=== PATIENT | male | born 1975 | race Caucasian/White ===

== ENCOUNTER 2017-01-22 19:17 | Emergency (ER) | payer BC ==
[~2017-01-22] VITALS: Ht 167.6 cm; Wt 90.7 kg
[~2017-01-22 19:17] MED LIST: PERCOCET 5/3251 EACH PO; VIBRAMYCIN 100100 MG PO
--- OUTSIDE RECORDS SUMMARY | 2017-01-22 19:23 | External Medical Summary Rpt | CCD ---
Author Author [employer] Organization [employer] Address Unknown Phone Unavailable Purpose Continuity of Care Document - through 2016
--- OUTSIDE RECORDS SUMMARY | 2017-01-22 19:23 | External Medical Summary Rpt | CCD ---
Author Author , SUKUMAR PATINO Address Unknown Phone [email or web address] Purpose Continuity of Care Document - through 2016
--- OUTSIDE RECORDS SUMMARY | 2017-01-22 19:23 | External Medical Summary Rpt | CCD ---
Author Author , SUKUMAR PATINO Address Unknown Phone [email or web address] Purpose Continuity of Care Document - through 2016
--- OUTSIDE RECORDS SUMMARY | 2017-01-22 19:24 | External Medical Summary Rpt ---
Author Author SUKUMAR Gunderson, [employer] Organization [employer] Address Unknown Phone Unavailable
--- OUTSIDE RECORDS SUMMARY | 2017-01-22 19:24 | External Medical Summary Rpt | CCD ---
Demographics Preferred Language Estonian Marital Status Unknown Presybeterian Affiliation Unknown Race Unknown Ethnic Group Unknown Author Author , SUKUMAR Organization [employer] Address Unknown Phone [email or web address] Immunization Name Date Rout CVX Reac Dose Comm Prov Is Faci e tion ent ider Refu lity Give sed n Td 03-0 9 999 Hist H149 No H149 (miranda 7-19 [facility] lt), 97 al Info adso rmat rbed ion - Sour ce Unsp ecif ied
--- OUTSIDE RECORDS SUMMARY | 2017-01-22 19:24 | External Medical Summary Rpt | CCD ---
Demographics Preferred Language Latvian Marital Status Unknown Pentecostalism Affiliation Unknown Race Unknown Ethnic Group Unknown Author Author , SUKUMAR Organization [employer] Address Unknown Phone [email or web address] Immunization Name Date Rout CVX Reac Dose Comm Prov Is Faci e tion ent ider Refu lity Give sed n Td 03-0 9 999 Hist H149 No H149 (miranda 7-19 [facility] lt), 97 al Info adso rmat rbed ion - Sour ce Unsp ecif ied
[2017-01-22 20:37] LABS: URINE BILIRUBIN - DIPSTICK 1+ (NEG); URINE BLOOD NEGATIVE (NEG)
[2017-01-22] MEDS ORDERED: TAMIFLU 75MG CA75 MG PO (20:44)
[2017-01-22] MEDS ORDERED: ZOFRAN ODT4 MG PO (20:44)
--- NOTE | 2017-01-22 20:44 | Urgent Treatment Center Report ---
History of Present Issue Date/Time Seen by Provider 01/22/17 2018 Visit Reason Pt arrived:Walked Presenting Problem:CHILLS, BODY ACHES, NOT FEELING WELL, NAUSEA, FEVER Location if Accident: Onset of symptoms date/time:/ or onset unknown for:MEDICAL HX UNKNOWN Have you (or family members/close friends) recently traveled outside the [place]? N If Yes, where/when: Have you had exposure to infectious disease within the past month? TB? Other? Specify: Here w/ c/o bodyaches, chills, nausea. Started w/ mild body aches night before last. Didn't pay much attention. Bodyaches again yesterday "but I just pushed through the day. I had to." Went on to work this morning and left around 3pm. Since then, symptoms worsening. Bodyaches and chills worse just in the last few hours. Not sure about fevers. Runny nose starting. "a little cough but not bad in the last hour". Motrin around 3-4pm. and children w/ stomach virus. last week and children over the last weekend. Pt feeling nauseated just since arriving to clinic and per triage nurse, vomited when taken back to room. Has not had flu vaccine. Source patient Exam Limitations no limitations ALLERGIES Coded Allergies: No Known Allergies (01/22/17) History Medical History General Angina: No PR: No Hypertension? No Hyperlipidemia? No COPD? No Asthma? No CVA? No Seizures? No Diabetes? No GB Disease: No MRSA? No TB? No Cancer? No Immunization HX DT/Tetanus 07/22/2008 Surgical Hx Previous Surgery?Y WISDOM TEETH Social History Smoking Hx Smoker: Current Every Day Smoker Tobacco: Yes Type Cigarettes Packs/day < 1 Pack Alcohol Alcohol: Yes Review of Systems All Other Systems Reviewed and Negative Constitutional see HPI Eyes denies drainage, denies pain ENT denies: ear pain, nose congestion, throat pain. Respiratory see HPI, denies shortness of breath, denies wheezing Cardiovascular see HPI, denies chest pain Gastrointestinal see HPI, denies abdominal pain, diarrhea (last night) Genitourinary denies: discharge, dysuria, frequency, hesitancy, hematuria, other (change urine color or smell). Musculoskeletal see HPI Skin denies lesions, denies rash Psychiatric/Neurological headache (intermittently), denies other (dizziness) Physical Exam Vital Signs Vital Signs Date Time Temp Pulse Resp B/P Pulse O2 O2 Flow FiO2 Ox Delivery Rate 01/23 2032 101.8 114 16 170/105 95 01/22 1938 101.5 119 16 188/116 98 General Appearance no apparent distress (but obviously doesn't feelwell) Eye Exam - bilateral eye normal exam (x/ mild scleral injection) Ear, Nose, Throat normal ENT inspection Neck non-tender, supple, full range of motion Respiratory Status Yes: trachea midline, chest symmetrical. No: respiratory distress, use of accessory muscles, pain on inspiration, pain on expiration, productive cough, non productive cough. Lung Sounds anterior: lungs clear. posterior: lungs clear. bilateral: lungs clear. Cardiovascular no peripheral edema, no murmur, tachycardia Gastrointestinal normal bowel sounds, non tender, soft Back no CVA tenderness Neurologic alert, oriented x 3 Mental status normal mood/affect Skin normal color, warm/dry Lymphatic no adenopathy Medical Decision Making LABS/Meds/Orders Pt receiving controlled substance in ED? No Results/Orders Laboratory Tests 01/22/172031: Urine Color YELLOW, Urine Appearance Clear, Urine pH 5.5, Ur Specific [place] 1.025, Urine Protein 3+ H, Urine Ketones TRACE H, Urine Blood NEGATIVE, Urine Nitrate NEGATIVE, Urine Bilirubin 1+ H, Urine Urobilinogen 1.0, Ur Leukocyte Esterase NEGATIVE, Urine Glucose NEGATIVE 01/22/171942: Influenza Type A Ag NOT DETECTED, Influenza Type B Ag NOT DETECTED Current Medication Orders Sig/Chan Start time Last Medication Dose Route Stop Time Status Admin Acetaminophen 650 MG ONCE ONE 01/22 1945 DC 01/22 PO 01/22 Ondansetron HCl 4 MG ONCE ONE 01/22 1945 DC 01/22 PO 01/22 Acetaminophen 0 .STK-MED ONE 01/22 1941 DC PO Ondansetron HCl 0 .STK-MED ONE 01/23 1936 DC .ROUTE Orders Procedure Date/time Status UT URINE DIPSTICK 01/23 2032 Complete UTC FLU A,B 01/22 1943 Complete Departure Departure Time of Disposition 2040 Disposition DC Home or Self Care(routine) Clinical Impression Primary Impression: Influenza-like illness Secondary Impressions: High blood pressure Qualifiers: Hypertension type: unspecified Qualified Code: I10 - Essential ( primary) hypertension Vomiting Qualifiers: Vomiting type: unspecified Vomiting Intractability: non-intractable Nausea presence: with nausea Qualified Code: R11.2 - Nausea with vomiting, unspecified Condition STABLE Referrals Luis Alfredo GUNTER,Primo (Family) If symptoms remain on Wednesday see PCP. For ANY new or worsening symptoms not consistent with what we discussed, be sure to follow up with me or ER immediately this weekend. Patient Instructions DI for High Blood Pressure, DI for Influenza -- Adult, DI for Viral Gastroenteritis -- Adult Additional Instructions * Start Tamiflu immediately if you are going to take it. Discussed risks and possible benefits. * Lots of rest * Increase fluids, water, gatorade, powerade, pedialyte if /toddler/child * Monitor Temp. Tylenol every 4 hours as needed no more then 5 times a day or 4000mg in 24 hours and/or ibuprofen every 6 hours as needed no more then 3200mg in 24 hours (as long as your primary care doctor has told you that it is ok to take both) for fever/aches/pain. ER if fever no less than 101 despite tylenol and Ibuprofen * You (or your child) are contagious until no fever, aches, chills x 24 hours without medication for symptoms. * Zofran as needed for nausea. * Avoid anti-diarrheals unless told otherwise. Best to let the virus run its course. * Monitor high blood pressure and if remains >140/90, you need to follow up. 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 Discharge Counseling Counseled pt/family regarding diagnosis, test results, medications/RX, home care, follow up needs Prescriptions Current Visit Scripts Oseltamivir Phosphate (Tamiflu 75MG Capsule) 75 MG PO BID #10 CAP Ondansetron (Zofran 4MG Odt) 4 MG PO Q8HP PRN nausea/vomiting #10 ODT at 205
[2017-01-22 20:46] VITALS: BP 170/105
== END 2017-01-22 20:48 | disposition home or self-care (01) ==
LOC: UTC 19:17
PROVIDERS: Nurse Practitioner Family
DX: J10.1 Influenza due to other identified influenza virus with other respiratory manifestations (principal); I10 Essential (primary) hypertension; R11.2 Nausea with vomiting, unspecified; F17.210 Nicotine dependence, cigarettes, uncomplicated